=== PATIENT | female | born 1960 | race Two or more races ===

== ENCOUNTER 2020-03-10 01:29 | Emergency (ER) | payer MEDICAID ==
[~2020-03-10] VITALS: Ht 157.5 cm; Wt 63.5 kg
--- NOTE | 2020-03-10 01:50 | NUR ---
Dr Robledo at bedside with MSE. Pt noted with small skin tear on R forehead, not actively bleeding at time of assessment. Area cleansed with NS for better assessment.
--- NOTE | 2020-03-10 03:21 | NUR ---
Patient has been cleared for DC. Denies headache, dizziness and any other pain/discomfort. Able to ambulate with steady gait. Band-aid has been placed on skin tear on forehead, with no acute bleeding noted. Patient discharged to home in stable condition. Written and verbal after care instructions given. Reinforced importance of ice application on head injury and fall prevention. Patient verbalizes understanding of instructions. Stressed follow up or return to ER for worsening s/s. Patient is waiting for her ride at this time.
--- NOTE | 2020-03-10 03:39 | NUR ---
Ambulated out of ED in steady gait, picked up by family member to home.
[2020-03-10 03:42] VITALS: BP 120/70
== END 2020-03-10 03:40 | disposition home or self-care (01) ==
LOC: ER 01:31
DX: S09.90XA Unspecified injury of head, initial encounter (principal); W01.0XXA Fall on same level from slipping, tripping and stumbling without subsequent striking against object, initial encounter; Y92.009 Unspecified place in unspecified non-institutional (private) residence as the place of occurrence of the external cause; S00.83XA Contusion of other part of head, initial encounter; M50.33 Other cervical disc degeneration, cervicothoracic region; Z93.6 Other artificial openings of urinary tract status
CPT/HCPCS: 70450; 72125; A4663